=== PATIENT | female | born 1935 | race Caucasian/White ===

== ENCOUNTER 2016-08-04 08:49 | Day surgery (SDC) | payer MEDICARE, BC ==
[~2016-08-04] VITALS: Ht 160 cm; Wt 60.0 kg
[2016-08-04] VITALS (13 sets, daily range): BP systolic 111–185; BP diastolic 48–78; PULSE 40–56; TEMP 97.5
[~2016-08-04 08:49] MED LIST: ACCURETIC 12.51 TA1 PO; APRESOLINE 10MG10 MG PO; LOPRESSOR100 MG PO; SYNTHROID0.075 MG/T PO; SYNTHROID0.112 MG/T PO
[2016-08-04] MEDS ORDERED: CARDIZEM CD 18180 MG PO (09:43)
[2016-08-04] MEDS ORDERED: VITAMIN D1000 IU PO (09:49)
[2016-08-04 10:13] LABS: CREATININE, serum 0.88 mg/dL (0.52-1.25)
[2016-08-04 10:16] LABS: HEMATOCRIT 40.5 % (37.0-47.0); HEMOGLOBIN 13.6 g/dl (12.5-16.0); MEAN CELL VOLUME 98 fl (80.0-100.0); MEAN CORPUSCULAR HEMOGLOBIN 33 pg (27.0-31.0); MEAN CORPUSCULAR HGB CONC 34 g/dl (33.0-37.0); MEAN PLATELET VOLUME 11.6 fl (7.4-10.4); PLATELET COUNT 217 K/mm3 (130-400); RED BLOOD COUNT 4.15 M/mm3 (4.10-5.30); REDCELL DISTRIBUTION WIDTH-CV 12.1 % (11.5-14.5); WHITE BLOOD COUNT 7.4 K/mm3 (4.8-10.8)
[2016-08-04 10:20] LABS: INR 0.9 (0.8-3.0); PROTHROMBIN TIME 10.3 SECONDS (9.7-12.8)
== END 2016-08-04 19:38 | disposition home or self-care (01) ==
LOC: EUO 08:49 → COL.RAD 09:00 → EUO 09:00
PROVIDERS: Radiology Diagnostic Radiology
DX: I77.3 Arterial fibromuscular dysplasia (principal); I10 Essential (primary) hypertension
CPT/HCPCS: C1725; C1769; C1887; C1894; J1644; J2250; J3010; J7120; Q9967